=== PATIENT | female | born 1990 | race Caucasian/White ===

== ENCOUNTER 2020-05-02 08:45 | Emergency (ER) | payer OTHER, SELFPAY ==
[2020-05-02] VITALS (8 sets, daily range): BP systolic 99–128; BP diastolic 59–82; PULSE 66–83; RESP 15–17; TEMP 36.7; O2SAT 97–100; BMI 31.8
[2020-05-02] MEDS: ONDANSETRON 4 MG/2 ML INJ IV ×2 (09:14→12:46)
[2020-05-02 09:30] LABS: INR 1.1 (0.9-1.3); Prothrombin Time 12.4 SECONDS (10.1-12.7)
[2020-05-02 09:33] LABS: Add Manual Diff / Slide Review NO; Basophils Absolute Auto 100 /uL (0-100); Basophils Percent Auto 0.5 % (0-2); Eosinophils Absolute Auto 100 /uL (0-450); Eosinophils Percent Auto 0.5 % (2-4); Hematocrit 43.1 % (36-46); Hemoglobin 14.3 g/dL (12.0-16.0); Lymphocytes Absolute Auto 1900 /uL (1100-4500); Lymphocytes Percent Auto 14.8 % (25-40); Mean Corpuscular HGB Conc 33.2 % (30-36); Mean Corpuscular Hemoglobin 28.3 PG (26-34); Mean Corpuscular Volume 85.4 fL (80-100); Monocytes Absolute Auto 700 /uL (0-900); Monocytes Percent Auto 5.4 % (3-14); Neutrophils Absolute Auto 10100 /uL (1500-7000); Neutrophils Percent Auto 78.8 % (50-75); PTT Partial Thromboplastin Tim 28 SECONDS (26.4-36.2); Platelet Count 225 X10^3/uL (150-400); Red Blood Cell Count 5.04 X10^6/uL (4.0-5.2); Red Cell Distribution Width 13.6 % (11.6-14.8); White Blood Cell Count 12.8 X10^3/uL (4.5-11.0)
[2020-05-02 09:34] LABS: Alanine Aminotransferase 22 IU/L (<35); Albumin 4.7 g/dL (3.5-5.0); Albumin Globulin Ratio 1.3 (1.0-2.8); Alkaline Phosphatase 60 U/L (38-126); Aspartate Aminotransferase 22 IU/L (14-36); BUN Creatinine Ratio 20.5 (6-22); Bilirubin Total 0.5 mg/dL (0.2-1.3); Blood Urea Nitrogen 15 mg/dL (7-17); Calcium 9.4 mg/dL (8.4-10.2); Carbon Dioxide 23 mmol/L (22-32); Chloride 105 mmol/L (98-107); Estimated Glomerular Filt Rate > 60.0 mL/min (>60); Globulin 3.5 g/dL (1.7-4.1); Glucose 93 mg/dL (70-100); HEMOLYSIS < 15 (0-50); Lipase 54 U/L (23-300); Potassium 3.7 mmol/L (3.4-5.1); Sodium 136 mmol/L (137-145); Total Protein 8.2 g/dL (6.3-8.2)
[2020-05-02 10:32] LABS: Appearance Urine UA CLEAR; Bilirubin Urine UA NEGATIVE (NEGATIVE); Color Urine UA YELLOW; Glucose Urine UA NEGATIVE (Negative); Ketones Urine UA 3+ (NEGATIVE); Leukocyte Esterase Urine UA NEGATIVE (NEGATIVE); Nitrite Urine UA NEGATIVE (Negative); Occult Blood Urine UA TRACE-INTACT (Negative); Protein Urine UA TRACE (Negative)
[2020-05-02 10:40] LABS: RBC Urine 0-1/HPF (0-5/HPF); Squamous Epithelial Cell Urine 10-30 /HPF (0-5/HPF); WBC Urine 0-1/HPF (0-5/HPF); pH Urine UA 6.5 (4.5-8.0)
[2020-05-02 10:41] LABS: Bacteria Urine Few (2-10); Culture Indicated Urine Cult Not Indicated
[2020-05-02 12:28] LABS: HCG Quantitative /Beta subunit 43764 mIU/mL
[2020-05-02] MEDS: SODIUM CHLORIDE 0.9% 1,000 ML 1000 ML IV (12:45)
--- NOTE | 2020-05-02 12:48 | ED.NAVMDI ---
HPI - Nausea/Vomiting/Diarrhea <ELAINE Maravilla - Last Filed: 05/02/20 14:51> General Chief complaint: Nausea/Vomiting/Diarrhea Stated complaint: vomiting/ sick for a week Time Seen by Provider: 05/02/20 12:09 Source: patient Mode of arrival: Ambulatory Limitations: no limitations History of Present Illness HPI Narrative: The patient is a 29-year-old female current everyday smoker presents with a chief complaint of nausea vomiting and vaginal spotting for the past week. She thinks she is on her menstrual cycle. She denies any fevers, does complain of slight low back pain. She denies any dysuria but states that she is urinating her pains every time she vomits. She states she is urinating well without urinary frequency or urgency. She states that her last menstrual cycle ended on 04/04/2020 or so. She states that she is vomiting throughout the day, and rarely goes more than a few hours without vomiting. She denies any vaginal discharge or concern about sexually transmitted infections. She denies any focal abdominal pain but complains of generalized cramping. She states she has been once before had an elective at that point time. She presents with her boyfriend today. 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 She states that she spots for 2 days, and then stops bleeding and then spots again a few days later. Related Data Previous Rx's Medication Instructions Recorded ondansetron 4 mg PO Q6H PRN #20 tab 05/02/20 Allergies Allergy/AdvReac Type Severity Reaction Status Date / Time No Known Drug Allergies Allergy Verified 05/02/20 09:02 Review of Systems <ELAINE Maravilla - Last Filed: 05/02/20 14:51> Review of Systems Narrative: GENERAL: Denies chills, fatigue, malaise, fever, sweats. HEENT: Denies sinus pain, ear pain, sore throat, difficulty swallowing, dizziness. RESPIRATORY: Denies dyspnea, cough, wheezing, hemoptysis, sputum. CARDIOVASCULAR: Denies chest pain, palpitations, orthopnea, edema, GASTROINTESTINAL: See HPI : See HPI MUSCULOSKELETAL: denies weakness, joint pain, or bony pain SKIN: Denies rash, skin lesions, or other NEUROLOGIC: Denies weakness, headache, numbness, change in speech, confusion, seizures, incoordination. PSYCHIATRIC: No concerning psychosocial issues. 12 point review of systems is negative except for those stated above Patient History <Gladys FontanezELAINE - Last Filed: 05/02/20 14:51> Surgical History (Updated 10/27/17 @ 05:50 by Conversion Provider) Status post knee surgery Social History Smoking Status: Current every day smoker Smoking Status: Current every day smoker tobacco type: vaping alcohol intake frequency: holidays/special occasions only Substance Use Type: marijuana Exam <Gladys FontanezELAINE - Last Filed: 05/02/20 14:51> Narrative Exam Narrative: GENERAL: This is a well-nourished, well-developed patient, in no acute distress HEAD: Atraumatic. Normocephalic. No temporal or scalp tenderness. EYES: Pupils equal round and reactive. Extraocular motions intact. No scleral icterus. No injection or drainage. ENT: Nose without bleeding, purulent drainage or septal hematoma. Throat without erythema, tonsillar hypertrophy or exudate. Uvula midline. Airway patent. Slightly dry mucous membranes NECK: Trachea midline. No JVD or lymphadenopathy. Supple, nontender, no meningeal signs. CARDIOVASCULAR: Regular rate and rhythm RESPIRATORY: Clear to auscultation. Breath sounds equal bilaterally. No wheezes, rales, or rhonchi. No cough. No increased respiratory effort. No accessory muscle use. GASTROINTESTINAL: Abdomen soft, slight suprapubic tenderness to palpation, active bowel sounds all 4 quadrants, nondistended. No hepato-splenomegaly, or palpable masses. No guarding. EXTREMITIES: No clubbing, cyanosis, or edema. No joint tenderness, effusion, or edema noted. BACK: Nontender without deformity or crepitance. No flank tenderness. NEURO: AOx3. SKIN: No rash or erythema on visible skin Initial Vital Signs Initial Vital Signs: Vital Signs Temperature 98.0 F 05/02/20 09:02 Pulse Rate 70 05/02/20 09:02 Respiratory Rate 15 05/02/20 09:02 Blood Pressure 128/75 05/02/20 09:02 Pulse Oximetry 97 05/02/20 09:02 <Yury Harding MD - Last Filed: 05/03/20 08:13> Initial Vital Signs Initial Vital Signs: Vital Signs Temperature 98.0 F 05/02/20 09:02 Pulse Rate 70 05/02/20 09:02 Respiratory Rate 15 05/02/20 09:02 Blood Pressure 128/75 05/02/20 09:02 Pulse Oximetry 97 05/02/20 09:02 Scores <SYLVIA MaravillaBC - Last Filed: 05/02/20 14:51> GCS Davis coma scale eye opening: Spontaneous [place] coma scale verbal response: Orientated [place] coma scale motor response: Obey commands Davis coma scale total score: 15 Course <SYLVIA MaravillaBC - Last Filed: 05/02/20 14:51> Orders Ordered: Discontinued Medications Sodium Chloride (Normal Saline 0.9%) 1,000 mls @ 1,000 mls/hr IV BOLUS ONE Stop: 05/02/20 13:28 Last Infusion: 05/02/20 14:08 Dose: 0 mls/hr Documented by: Admin: 05/02/20 12:45 Dose: 1,000 mls/hr Documented by: CHINTAN Ondansetron HCl (Zofran) 4 mg IV NOW ONE Stop: 05/02/20 09:06 Last Admin: 05/02/20 09:14 Dose: 4 mg Documented by: GIUSEPPE Ondansetron HCl (Zofran) 4 mg IV NOW ONE Stop: 05/02/20 12:30 Last Admin: 05/02/20 12:46 Dose: 4 mg Documented by: CHINTAN Vital Signs Vital signs: Vital Signs - 8 hr 05/02/20 09:02 05/02/20 11:30 05/02/20 12:00 Temperature 98.0 F Pulse Rate 70 71 66 Respiratory Rate 15 16 17 Blood Pressure 128/75 128/69 121/82 Pulse Oximetry 97 99 98 05/02/20 13:00 05/02/20 13:04 05/02/20 13:30 Temperature Pulse Rate 81 80 75 Respiratory Rate 17 Blood Pressure 115/75 103/59 L Pulse Oximetry 100 98 99 05/02/20 14:00 05/02/20 14:30 Temperature Pulse Rate 83 81 Respiratory Rate Blood Pressure 100/59 L 99/65 Pulse Oximetry 97 98 <Yury Harding MD - Last Filed: 05/03/20 08:13> Orders Ordered: Discontinued Medications Sodium Chloride (Normal Saline 0.9%) 1,000 mls @ 1,000 mls/hr IV BOLUS ONE Stop: 05/02/20 13:28 Last Infusion: 05/02/20 14:08 Dose: 0 mls/hr Documented by: Admin: 05/02/20 12:45 Dose: 1,000 mls/hr Documented by: CHINTAN Ondansetron HCl (Zofran) 4 mg IV NOW ONE Stop: 05/02/20 09:06 Last Admin: 05/02/20 09:14 Dose: 4 mg Documented by: GIUSEPPE Ondansetron HCl (Zofran) 4 mg IV NOW ONE Stop: 05/02/20 12:30 Last Admin: 05/02/20 12:46 Dose: 4 mg Documented by: CHINTAN Vital Signs Vital signs: Vital Signs - 8 hr 05/02/20 09:02 05/02/20 11:30 05/02/20 12:00 Temperature 98.0 F Pulse Rate 70 71 66 Respiratory Rate 15 16 17 Blood Pressure 128/75 128/69 121/82 Pulse Oximetry 97 99 98 05/02/20 13:00 05/02/20 13:04 05/02/20 13:30 Temperature Pulse Rate 81 80 75 Respiratory Rate 17 Blood Pressure 115/75 103/59 L Pulse Oximetry 100 98 99 05/02/20 14:00 05/02/20 14:30 Temperature Pulse Rate 83 81 Respiratory Rate Blood Pressure 100/59 L 99/65 Pulse Oximetry 97 98 MDM - Nausea/Vomiting/Diarrhea <TORI Maravilla- - Last Filed: 05/02/20 14:51> Lab Data Attestation: I reviewed the patient's lab results. Result diagrams: 05/02/20 09:00 05/02/20 09:00 Labs: Lab Results 05/02/20 05/02/20 05/02/20 Range/Units 09:00 09:00 09:00 WBC 12.8 H (4.5-11.0) X10^3/uL RBC 5.04 (4.0-5.2) X10^6/uL Hgb 14.3 (12.0-16.0) g/dL Hct 43.1 (36-46) % MCV 85.4 (80-100) fL MCH 28.3 (26-34) PG MCHC 33.2 (30-36) % RDW 13.6 (11.6-14.8) % Plt Count 225 (150-400) X10^3/uL Neut % (Auto) 78.8 H (50-75) % Lymph % (Auto) 14.8 L (25-40) % [place] % (Auto) 5.4 (3-14) % Eos % (Auto) 0.5 L (2-4) % Baso % (Auto) 0.5 (0-2) % Neut # (Auto) 31015 H (3181-2626) /uL Lymph # (Auto) 1900 (6254-8746) /uL [place] # (Auto) 700 (0-900) /uL Eos # (Auto) 100 (0-450) /uL Baso # (Auto) 100 (0-100) /uL PT 12.4 (10.1-12.7) SECONDS INR 1.1 (0.9-1.3) APTT 28 (26.4-36.2) SECONDS Sodium 136 L (137-145) mmol/L Potassium 3.7 (3.4-5.1) mmol/L Chloride 105 (98-107) mmol/L Carbon Dioxide 23 (22-32) mmol/L BUN 15 (7-17) mg/dL Creatinine 0.73 (0.52-1.04) mg/dL Estimated GFR > 60.0 (>60) mL/min BUN/Creatinine Ratio 20.5 (6-22) Glucose 93 (70-100) mg/dL Calcium 9.4 (8.4-10.2) mg/dL Total Bilirubin 0.5 (0.2-1.3) mg/dL AST 22 (14-36) IU/L ALT 22 (<35) IU/L Alkaline Phosphatase 60 (38-126) U/L Total Protein 8.2 (6.3-8.2) g/dL Albumin 4.7 (3.5-5.0) g/dL Globulin 3.5 (1.7-4.1) g/dL Albumin/Globulin Ratio 1.3 (1.0-2.8) Lipase 54 (23-300) U/L HCG, Quant mIU/mL Urine Color Urine Appearance Urine pH (4.5-8.0) Ur Specific [place] (1.000-1.035) Urine Protein (Negative) Urine Glucose (UA) (Negative) g/dL Urine Ketones (NEGATIVE) Urine Occult Blood (Negative) Urine Nitrate (Negative) Urine Bilirubin (NEGATIVE) Urine Urobilinogen (0.2) E.U./dL Ur Leukocyte Esterase (NEGATIVE) Urine RBC (0-5/HPF) Urine WBC (0-5/HPF) Ur Squamous Epith Cells (0-5/HPF) Ur Transition Epith Cell Ur Renal Epithelial Cell Calcium Oxalate Crystal Uric Acid Crystals Triple Phos Crystals Other Crystals Amorphous Sediment Urine Bacteria (None) Hyaline Casts Granular Casts RBC Casts WBC Casts Other Casts Urine Mucus Urine Trichomonas Urine Yeast Urine Sperm Ur Culture Indicated? Micro UA Comment 05/02/20 05/02/20 05/02/20 Range/Units 09:00 09:18 09:18 WBC (4.5-11.0) X10^3/uL RBC (4.0-5.2) X10^6/uL Hgb (12.0-16.0) g/dL Hct (36-46) % MCV (80-100) fL MCH (26-34) PG MCHC (30-36) % RDW (11.6-14.8) % Plt Count (150-400) X10^3/uL Neut % (Auto) (50-75) % Lymph % (Auto) (25-40) % [place] % (Auto) (3-14) % Eos % (Auto) (2-4) % Baso % (Auto) (0-2) % Neut # (Auto) (7609-1572) /uL Lymph # (Auto) (6060-7108) /uL [place] # (Auto) (0-900) /uL Eos # (Auto) (0-450) /uL Baso # (Auto) (0-100) /uL PT (10.1-12.7) SECONDS INR (0.9-1.3) APTT (26.4-36.2) SECONDS Sodium (137-145) mmol/L Potassium (3.4-5.1) mmol/L Chloride (98-107) mmol/L Carbon Dioxide (22-32) mmol/L BUN (7-17) mg/dL Creatinine (0.52-1.04) mg/dL Estimated GFR (>60) mL/min BUN/Creatinine Ratio (6-22) Glucose (70-100) mg/dL Calcium (8.4-10.2) mg/dL Total Bilirubin (0.2-1.3) mg/dL AST (14-36) IU/L ALT (<35) IU/L Alkaline Phosphatase (38-126) U/L Total Protein (6.3-8.2) g/dL Albumin (3.5-5.0) g/dL Globulin (1.7-4.1) g/dL Albumin/Globulin Ratio (1.0-2.8) Lipase (23-300) U/L HCG, Quant 34628 mIU/mL Urine Color Yellow Urine Appearance Clear Urine pH 6.5 (4.5-8.0) Ur Specific [place] 1.010 (1.000-1.035) Urine Protein Trace H (Negative) Urine Glucose (UA) Negative (Negative) g/dL Urine Ketones 3+ H (NEGATIVE) Urine Occult Blood Trace-intact (Negative) Urine Nitrate Negative (Negative) Urine Bilirubin Negative (NEGATIVE) Urine Urobilinogen 1.0 (0.2) E.U./dL Ur Leukocyte Esterase Negative (NEGATIVE) Urine RBC 0-1/hpf Cancelled (0-5/HPF) Urine WBC 0-1/hpf Cancelled (0-5/HPF) Ur Squamous Epith Cells 10-30 /hpf H Cancelled (0-5/HPF) Ur Transition Epith Cell Cancelled Ur Renal Epithelial Cell Cancelled Calcium Oxalate Crystal Cancelled Uric Acid Crystals Cancelled Triple Phos Crystals Cancelled Other Crystals Cancelled Amorphous Sediment Cancelled Urine Bacteria Few (2-10) H Cancelled (None) Hyaline Casts Cancelled Granular Casts Cancelled RBC Casts Cancelled WBC Casts Cancelled Other Casts Cancelled Urine Mucus Cancelled Urine Trichomonas Cancelled Urine Yeast Cancelled Urine Sperm Cancelled Ur Culture Indicated? Cult not indicated Cancelled Micro UA Comment Cancelled Point of Care Testing Test Results Positive Imaging Data US - OB: Radiologist's Impression: [address] [place] [id number] Ultrasound Report Signed Patient: Caridad Orozco [facility]#: [id number] : 1990Acct:[id number] Age/Sex: 29 / FDate of Service: 05/02/20 Loc: ED Accession Number: [id number] Procedure: US OB <= 14 weeks fetus Ordering Provider: Gladys Fontanez PROCEDURE: US OB <= 14 WEEKS FETUS INDICATIONS: BLEEDING, CRAMPING OUTSIDE/PRIOR DATING DATA: Last menstrual period (LMP): 04/06/2020. LMP-based estimated date of delivery (GRACE): 01/11/2021 First dating scan (date and location): 05/02/2020 at [facility] Estimated date of delivery (GRACE) from first dating scan: 12/18/2020 TECHNIQUE: Real-time scanning was performed of the fetus and maternal pelvic organs, with image documentation. Endovaginal scanning was also performed to better visualize the fetus and maternal ovaries. COMPARISON: None. FINDINGS: Embryo: An intrauterine is seen with embryo and yolk sac. The crown-rump length is 11 mm, compatible with a gestational age of 7 weeks 1 day. heart rate is 141 beats per minute. A complex fluid collection is seen adjacent to the gestational sac measuring 1.1 x 1.1 x 1.0 cm, most likely representing a perigestational hemorrhage. Measurement variability in dating: +/- 4 weeks by LMP, +/- 7 days by mean sac diameter (use before 6 weeks gestation if crown-rump length not able to be measured), +/- 5 days by crown-rump length (up to 8 weeks 6 days gestation), +/- 7 days by crown-rump length (up to 13 weeks 6 days gestation). Maternal organs: Ovaries are not well visualized. Limited images through the kidneys demonstrate no hydronephrosis. IMPRESSION: 1. Single live intrauterine with measurements compatible with a 7 weeks 1 day gestation, resulting in an ultrasound GRACE of 12/18/2020. heart rate is 141 BPM. 2. Small perigestational sac hemorrhage measures 1.1 x 1.1 x 1.0 cm. 3. Maternal ovaries are not well visualized. Dictated by: Que Swanson M.D. on 05/02/2020 at 13:28 Approved by: Que Swanson M.D. on 05/02/2020 at 13:33 MDM Narrative Medical decision making narrative: The patient is a 29-year-old female who presents with a chief complaint of nausea and vomiting for the past week. Her initial lab work is grossly normal, slight leukocytosis of 12. Her urinalysis shows slight hematuria slight bacteria, no nitrates or leukocyte esterase. She is noted to have a positive urine test. Subsequently beta [place] [address]. Thus an ultrasound was obtained to rule out for any tubal given her abdominal pain and cramping. Ultrasound was obtained and she was found to be approximately 7 weeks and 1 day , with a small the carrie gestational sac hemorrhage. The patient felt much improved after Zofran and IV fluids, is able to keep down p.o. food and fluids and requesting to leave. I did discuss at length with her the importance of follow-up, she actually has an appointment with her primary care provider tomorrow. She would rather go through go through her primary care provider to help arrange OBGYN follow-up. She is nontoxic, well appearing the emergency department, afebrile and hemodynamically stable. I discussed at length starting vitamins, avoiding smoking alcohol etcetera. She does have an appointment with PCP tomorrow. Discussed come back to ER for acute concerns. Discussed the finding of a small gestational sac hemorrhage and encouraged follow-up care. Patient has no questions or concerns upon discharge and states understanding of return precautions as well as follow-up care. <Yury Harding MD - Last Filed: 05/03/20 08:13> Lab Data Labs: Lab Results 05/02/20 05/02/20 05/02/20 Range/Units 09:00 09:00 09:00 WBC 12.8 H (4.5-11.0) X10^3/uL RBC 5.04 (4.0-5.2) X10^6/uL Hgb 14.3 (12.0-16.0) g/dL Hct 43.1 (36-46) % MCV 85.4 (80-100) fL MCH 28.3 (26-34) PG MCHC 33.2 (30-36) % RDW 13.6 (11.6-14.8) % Plt Count 225 (150-400) X10^3/uL Neut % (Auto) 78.8 H (50-75) % Lymph % (Auto) 14.8 L (25-40) % [place] % (Auto) 5.4 (3-14) % Eos % (Auto) 0.5 L (2-4) % Baso % (Auto) 0.5 (0-2) % Neut # (Auto) 94776 H (1087-1126) /uL Lymph # (Auto) 1900 (2273-5021) /uL [place] # (Auto) 700 (0-900) /uL Eos # (Auto) 100 (0-450) /uL Baso # (Auto) 100 (0-100) /uL PT 12.4 (10.1-12.7) SECONDS INR 1.1 (0.9-1.3) APTT 28 (26.4-36.2) SECONDS Sodium 136 L (137-145) mmol/L Potassium 3.7 (3.4-5.1) mmol/L Chloride 105 (98-107) mmol/L Carbon Dioxide 23 (22-32) mmol/L BUN 15 (7-17) mg/dL Creatinine 0.73 (0.52-1.04) mg/dL Estimated GFR > 60.0 (>60) mL/min BUN/Creatinine Ratio 20.5 (6-22) Glucose 93 (70-100) mg/dL Calcium 9.4 (8.4-10.2) mg/dL Total Bilirubin 0.5 (0.2-1.3) mg/dL AST 22 (14-36) IU/L ALT 22 (<35) IU/L Alkaline Phosphatase 60 (38-126) U/L Total Protein 8.2 (6.3-8.2) g/dL Albumin 4.7 (3.5-5.0) g/dL Globulin 3.5 (1.7-4.1) g/dL Albumin/Globulin Ratio 1.3 (1.0-2.8) Lipase 54 (23-300) U/L HCG, Quant mIU/mL Urine Color Urine Appearance Urine pH (4.5-8.0) Ur Specific [place] (1.000-1.035) Urine Protein (Negative) Urine Glucose (UA) (Negative) g/dL Urine Ketones (NEGATIVE) Urine Occult Blood (Negative) Urine Nitrate (Negative) Urine Bilirubin (NEGATIVE) Urine Urobilinogen (0.2) E.U./dL Ur Leukocyte Esterase (NEGATIVE) Urine RBC (0-5/HPF) Urine WBC (0-5/HPF) Ur Squamous Epith Cells (0-5/HPF) Ur Transition Epith Cell Ur Renal Epithelial Cell Calcium Oxalate Crystal Uric Acid Crystals Triple Phos Crystals Other Crystals Amorphous Sediment Urine Bacteria (None) Hyaline Casts Granular Casts RBC Casts WBC Casts Other Casts Urine Mucus Urine Trichomonas Urine Yeast Urine Sperm Ur Culture Indicated? Micro UA Comment 05/02/20 05/02/20 05/02/20 Range/Units 09:00 09:18 09:18 WBC (4.5-11.0) X10^3/uL RBC (4.0-5.2) X10^6/uL Hgb (12.0-16.0) g/dL Hct (36-46) % MCV (80-100) fL MCH (26-34) PG MCHC (30-36) % RDW (11.6-14.8) % Plt Count (150-400) X10^3/uL Neut % (Auto) (50-75) % Lymph % (Auto) (25-40) % [place] % (Auto) (3-14) % Eos % (Auto) (2-4) % Baso % (Auto) (0-2) % Neut # (Auto) (7556-3192) /uL Lymph # (Auto) (7300-2904) /uL [place] # (Auto) (0-900) /uL Eos # (Auto) (0-450) /uL Baso # (Auto) (0-100) /uL PT (10.1-12.7) SECONDS INR (0.9-1.3) APTT (26.4-36.2) SECONDS Sodium (137-145) mmol/L Potassium (3.4-5.1) mmol/L Chloride (98-107) mmol/L Carbon Dioxide (22-32) mmol/L BUN (7-17) mg/dL Creatinine (0.52-1.04) mg/dL Estimated GFR (>60) mL/min BUN/Creatinine Ratio (6-22) Glucose (70-100) mg/dL Calcium (8.4-10.2) mg/dL Total Bilirubin (0.2-1.3) mg/dL AST (14-36) IU/L ALT (<35) IU/L Alkaline Phosphatase (38-126) U/L Total Protein (6.3-8.2) g/dL Albumin (3.5-5.0) g/dL Globulin (1.7-4.1) g/dL Albumin/Globulin Ratio (1.0-2.8) Lipase (23-300) U/L HCG, Quant 61679 mIU/mL Urine Color Yellow Urine Appearance Clear Urine pH 6.5 (4.5-8.0) Ur Specific [place] 1.010 (1.000-1.035) Urine Protein Trace H (Negative) Urine Glucose (UA) Negative (Negative) g/dL Urine Ketones 3+ H (NEGATIVE) Urine Occult Blood Trace-intact (Negative) Urine Nitrate Negative (Negative) Urine Bilirubin Negative (NEGATIVE) Urine Urobilinogen 1.0 (0.2) E.U./dL Ur Leukocyte Esterase Negative (NEGATIVE) Urine RBC 0-1/hpf Cancelled (0-5/HPF) Urine WBC 0-1/hpf Cancelled (0-5/HPF) Ur Squamous Epith Cells 10-30 /hpf H Cancelled (0-5/HPF) Ur Transition Epith Cell Cancelled Ur Renal Epithelial Cell Cancelled Calcium Oxalate Crystal Cancelled Uric Acid Crystals Cancelled Triple Phos Crystals Cancelled Other Crystals Cancelled Amorphous Sediment Cancelled Urine Bacteria Few (2-10) H Cancelled (None) Hyaline Casts Cancelled Granular Casts Cancelled RBC Casts Cancelled WBC Casts Cancelled Other Casts Cancelled Urine Mucus Cancelled Urine Trichomonas Cancelled Urine Yeast Cancelled Urine Sperm Cancelled Ur Culture Indicated? Cult not indicated Cancelled Micro UA Comment Cancelled Point of Care Testing Test Results Positive Discharge Plan Departure Patient Disposition: Home Clinical Impression: Nausea and vomiting during , Vaginal bleeding in Qualifiers: Weeks of gestation: less than 8 weeks Qualified Code(s): Z3A.01 - Less than 8 weeks gestation of Discharge Date/Time: 05/02/20 14:46 Instructions: Nausea of (Alternative Therapy), Support (Alternative Therapy), DI for -- Discomforts and Remedies, DI for Vaginal Bleeding During Activity Restrictions/Additional Instructions: Thank you for trusting us with your care today. As discussed, you are 7 weeks and 1 day approximately. At this point there is a small perigestational sac hemorrhage which could be leading to the bleeding. This can be between the uterine wall and the membrane and the . It is very common, but certainly does need to be monitored. It is important that you follow-up with primary care provider as scheduled tomorrow. As discussed, please avoid smoking. Please start taking vitamins etcetera. I have sent a prescription of ondansetron or Zofran for nausea to [facility] in [place] Please come back to the emergency department for any acute concerns. Prescriptions: New ondansetron 4 mg tablet,disintegrating 4 mg PO Q6H PRN (Reason: nausea and vomiting) Qty: 20 RF: 0 Referrals: Gia Irvin PA-C [Primary Care Provider] - Stand Alone Forms: Work Release Note <Yury Harding MD - Last Filed: 05/03/20 08:13> [facility]: I was immediately available in the department for consultation. This documentation has been reviewed and I agree with assessment and plan. Supervised by Yury Harding MD
== END 2020-05-02 14:46 | disposition home or self-care (01) ==
PROVIDERS: Emergency Medicine; Emergency Provider Nurse Practitioner Family; Family Provider Physician Assistant; PCP Physician Assistant
DX: O21.9 Vomiting of pregnancy, unspecified (principal); R30.0 Dysuria; Z3A.01 Less than 8 weeks gestation of pregnancy
CPT/HCPCS: 36415; 76801; 76817; 80053; 81001; 81025; 83690; 84702; 85025; 85610; 85730; 93005; 96361; 96374; 96376; 99284; J2405

== ENCOUNTER → 2020-07-09 14:53 | Outpatient (CLI) | payer OTHER, MEDICAID, SELFPAY ==
[2020-07-09 16:01] LABS: Add Manual Diff / Slide Review NO; Basophils Absolute Auto 100 /uL (0-100); Basophils Percent Auto 0.4 % (0-2); Eosinophils Absolute Auto 100 /uL (0-450); Eosinophils Percent Auto 0.6 % (2-4); Hematocrit 39.7 % (36-46); Lymphocytes Absolute Auto 3400 /uL (1100-4500); Lymphocytes Percent Auto 21.3 % (25-40); Mean Corpuscular HGB Conc 32.7 % (30-36); Mean Corpuscular Hemoglobin 28.1 PG (26-34); Mean Corpuscular Volume 85.8 fL (80-100); Monocytes Absolute Auto 800 /uL (0-900); Monocytes Percent Auto 4.9 % (3-14); Neutrophils Absolute Auto 11500 /uL (1500-7000); Neutrophils Percent Auto 72.8 % (50-75); Platelet Count 219 X10^3/uL (150-400); Red Blood Cell Count 4.62 X10^6/uL (4.0-5.2); Red Cell Distribution Width 13.8 % (11.6-14.8); White Blood Cell Count 15.8 X10^3/uL (4.5-11.0)
[2020-07-09 16:14] LABS: Alanine Aminotransferase 18 IU/L (<35); Albumin 4.5 g/dL (3.5-5.0); Albumin Globulin Ratio 1.4 (1.0-2.8); Alkaline Phosphatase 64 U/L (38-126); Aspartate Aminotransferase 20 IU/L (14-36); BUN Creatinine Ratio 23.2 (6-22); Blood Urea Nitrogen 13 mg/dL (7-17); Calcium 9.6 mg/dL (8.4-10.2); Carbon Dioxide 25 mmol/L (22-32); Chloride 102 mmol/L (98-107); Estimated Glomerular Filt Rate > 60.0 mL/min (>60); Globulin 3.3 g/dL (1.7-4.1); Glucose 87 mg/dL (70-100); HEMOLYSIS < 15 (0-50); Lactate Dehydrogenase 378 U/L (313-618); Potassium 3.8 mmol/L (3.4-5.1); Sodium 134 mmol/L (137-145); Total Protein 7.8 g/dL (6.3-8.2); Uric Acid 2.6 mg/dL (2.5-6.2)
[2020-07-09 16:32] LABS: Appearance Urine UA CLEAR; Bilirubin Urine UA NEGATIVE (NEGATIVE); Color Urine UA YELLOW; Glucose Urine UA NEGATIVE (Negative); Ketones Urine UA 2+ (NEGATIVE); Leukocyte Esterase Urine UA NEGATIVE (NEGATIVE); Nitrite Urine UA NEGATIVE (Negative); Occult Blood Urine UA TRACE-LYSED (Negative); Protein Urine UA NEGATIVE (Negative); Specific Gravity Urine UA 1.025 (1.000-1.035); Urobilinogen Urine UA 0.2 E.U./dL (0.2)
[2020-07-09 16:40] LABS: Bilirubin Total < 0.1 mg/dL (0.2-1.3)
[2020-07-09 16:58] LABS: pH Urine UA 6.5 (4.5-8.0)
[2020-07-10 08:17] LABS: RPR Screen Non Reactive (Non Reactive)
[2020-07-10 10:47] LABS: Varicella IgG Antibody 1974 index (Immune >165)
[2020-07-10 17:17] LABS: Creatinine Urine Random 116.8 mg/dL; Protein (Total) Urine Random 7 mg/dL (0-12); Protein Creatinine Ratio Urine 0.05 GRAM/24H
[2020-07-10 18:11] LABS: Hepatitis B Surface Antigen NEGATIVE s/c (NEGATIVE)
[2020-07-10 18:20] LABS: HIV 1 & 2 Ab/Ag 4th Gen Combo NEGATIVE (NEGATIVE); Hep C Virus Ab w/Reflex Quant NEGATIVE s/c (NEGATIVE)
== END ==
PROVIDERS: Family Provider Physician Assistant; PCP Registered Nurse; Referring Provider Obstetrics & Gynecology; Visit Provider Obstetrics & Gynecology
DX: Z34.82 Encounter for supervision of other normal pregnancy, second trimester (principal)
CPT/HCPCS: 36415; 80053; 80055; 81003; 82570; 83615; 84156; 84550; 86787; 86803; 86850; 86900; 86901; 87086; 87147; 87389

== ENCOUNTER → 2020-09-21 14:58 | Outpatient (CLI) | payer OTHER, MEDICAID, SELFPAY ==
--- NOTE | 2020-09-21 14:59 | DI.US.S_ITS ---
PROCEDURE: US OB >= 14 WEEKS FETUS INDICATIONS: SIZE UPDATE OUTSIDE/PRIOR DATING DATA: Last menstrual period (LMP): April 06, 2020. LMP-based estimated date of delivery (GRACE): January 11, 2021. First dating scan (date and location): May 02, 2020. Estimated date of delivery (GRACE) from first dating scan: December 18, 2020. TECHNIQUE: Real-time scanning was performed of the fetus, with image documentation and biometric measurements. Endovaginal scanning: Performed COMPARISON: [facility], , OB <= 14 WEEKS FETUS, 06/11/2020, 15:12. [facility], , OB <= 14 WEEKS FETUS, 05/02/2020, 13:00. FINDINGS: General: A single living intrauterine gestation is present. Presentation: Vertex Placenta: Placental position is anterior, without previa. Amniotic fluid index: 19.0 cm, normal range is 5-24 cm. heart rate: 127 beats per minute. Maternal cervical canal: Closed and 3.0 cm long. Normal lower limit is 2.5 cm. biometrics: Biparietal diameter: 27 weeks 6 days Head circumference: 27 weeks 2 days Abdominal circumference: 26 weeks 1 day Femur length: 27 weeks 2 days Estimated gestational age from initial scan: 27 weeks 3 days. Composite gestational age from present scan: 27 weeks 1 day Estimated weight and percentile: 966 grams; 14th percentile Measurement variability for biometric dating: +/- 7 days from 14 weeks to 15 weeks 6 days gestation, +/- 10 days from 16 weeks to 21 weeks 6 days gestation, +/- 2 weeks from 22 weeks to 27 weeks 6 days gestation, +/- 3 weeks for 28 weeks gestation or later. weight reference: 4500 g or EFW >90/95% is considered macrosomia or large for gestational age. EFW <10% is small for gestational age. EFW 5% or less is considered intra-uterine growth restriction. Anatomic survey: Neuro: Ventricles are non-dilated at less than 10 mm. Cisterna magna is normal at 3-11 mm. Cerebellum is normal in size and morphology. Nuchal skin fold: Normal at less than 6 mm between 14-21 weeks gestational age. Face: Nose and lips, facial profile are normal. Spine: Sacral lumbar spine not well visualized due to position. Heart: 4-chambered heart is present, with normal ventricular outflow tracts. Diaphragm: Diaphragm is intact. Stomach: Left-sided stomach is present. Kidneys: No hydronephrosis. Normal is less than 5 mm in 2nd trimester, less than 7 mm in 3rd trimester. Cord: 3-vessel cord has orthotopic insertion. Bladder: Normal in size. Extremities: All 4 extremities identified. IMPRESSION: 1. Single living intrauterine . 2. Normal amniotic fluid index. 3. Estimated weight 966 grams corresponding to the 14th percentile for gestational age. Abdominal circumference 10th percentile for gestational age. 4. lumbar spine and sacrum not visualized due to position. anatomic survey otherwise normal. Dictated by: Trena Keith MD, PhD on 09/21/2020 at 16:59 Approved by: Trena Keith MD, PhD on 09/21/2020 at 17:03
== END ==
PROVIDERS: Family Provider Physician Assistant; PCP Registered Nurse; Referring Provider Obstetrics & Gynecology; Visit Provider Obstetrics & Gynecology
DX: Z36.89 Encounter for other specified antenatal screening (principal); Z3A.27 27 weeks gestation of pregnancy
CPT/HCPCS: 76811

== ENCOUNTER → 2020-10-03 12:07 | Outpatient (CLI) | payer OTHER, MEDICAID, SELFPAY ==
--- NOTE | 2020-10-03 12:08 | DI.US.S_ITS ---
PROCEDURE: US OB LIMITED INDICATIONS: GROWTH; RE-EVALUATE LUMBOSACRAL SPINE OUTSIDE/PRIOR DATING DATA: Last menstrual period (LMP): 04/06/2020. LMP-based estimated date of delivery (GRACE): 01/11/2021 . First dating scan (date and location): 05/02/2020 . Estimated date of delivery (GRACE) from first dating scan: 12/18/2020 . TECHNIQUE: Real-time scanning was performed of the fetus, with image documentation and biometric measurements. Endovaginal scanning: No COMPARISON: [facility], OB >= 14 WEEKS FETUS, 09/21/2020, 15:52. FINDINGS: General: A single living intrauterine gestation is present. Presentation: Vertex. Placenta: Placental position is anterior , without previa. Amniotic fluid index: 19.0 cm, normal range is 5-24 cm. heart rate: 135 beats per minute. Maternal cervical canal: 3.3 cm long. Normal lower limit is 2.5 cm. biometrics: Biparietal diameter: 29 weeks 2 days Head circumference: 28 weeks 6 days Abdominal circumference: 28 weeks 5 days Femur length: 29 weeks 4 days Estimated gestational age from initial scan: 29 weeks 1 day Composite gestational age from present scan: 29 weeks 1 day Estimated weight and percentile: 1325 g; 33rd percentile Measurement variability for biometric dating: +/- 7 days from 14 weeks to 15 weeks 6 days gestation, +/- 10 days from 16 weeks to 21 weeks 6 days gestation, +/- 2 weeks from 22 weeks to 27 weeks 6 days gestation, +/- 3 weeks for 28 weeks gestation or later. weight reference: 4500 g or EFW >90/95% is considered macrosomia or large for gestational age. EFW <10% is small for gestational age. EFW 5% or less is considered intra-uterine growth restriction. Other: Normal LS spine.Normal LS spine. IMPRESSION: 1. Normal interval growth. 2. Normal appearance of the lumbosacral spine. Dictated by: Titus Hong Daniela Interpreted: Dony Renee MD on 10/03/2020 at 13:01 Approved by: Dony Renee M.D. on 10/03/2020 at 14:42
== END ==
PROVIDERS: Family Provider Physician Assistant; PCP Registered Nurse; Referring Provider Obstetrics & Gynecology; Visit Provider Obstetrics & Gynecology
DX: Z34.93 Encounter for supervision of normal pregnancy, unspecified, third trimester (principal); Z3A.29 29 weeks gestation of pregnancy
CPT/HCPCS: 76815

== ENCOUNTER → 2020-10-22 12:17 | Outpatient (CLI) | payer OTHER, MEDICAID, SELFPAY ==
[2020-10-22 14:33] LABS: HEMOLYSIS < 15 (0-50)
[2020-10-22 14:34] LABS: Alanine Aminotransferase 19 IU/L (<35); Albumin 3.7 g/dL (3.5-5.0); Albumin Globulin Ratio 1.2 (1.0-2.8); Alkaline Phosphatase 100 U/L (38-126); Aspartate Aminotransferase 21 IU/L (14-36); BUN Creatinine Ratio 12.9 (6-22); Bilirubin Total 0.2 mg/dL (0.2-1.3); Blood Urea Nitrogen 8 mg/dL (7-17); Calcium 9.4 mg/dL (8.4-10.2); Carbon Dioxide 22 mmol/L (22-32); Chloride 105 mmol/L (98-107); Estimated Glomerular Filt Rate > 60.0 mL/min (>60); GTT (PREG) 1 Hour PP 50gm Dose 125 mg/dL (76-139); Globulin 3.1 g/dL (1.7-4.1); Glucose 125 mg/dL (70-100); Lactate Dehydrogenase 339 U/L (313-618); Sodium 134 mmol/L (137-145); Total Protein 6.8 g/dL (6.3-8.2); Uric Acid 3.1 mg/dL (2.5-6.2)
[2020-10-22 14:39] LABS: Potassium 3.5 mmol/L (3.4-5.1)
[2020-10-22 14:40] LABS: Add Manual Diff / Slide Review NO; Basophils Absolute Auto 0 /uL (0-100); Basophils Percent Auto 0.2 % (0-2); Eosinophils Absolute Auto 100 /uL (0-450); Eosinophils Percent Auto 0.5 % (2-4); Hematocrit 36.5 % (36-46); Lymphocytes Absolute Auto 1700 /uL (1100-4500); Lymphocytes Percent Auto 13.4 % (25-40); Mean Corpuscular HGB Conc 32.8 % (30-36); Mean Corpuscular Hemoglobin 28.3 PG (26-34); Mean Corpuscular Volume 86.2 fL (80-100); Monocytes Absolute Auto 600 /uL (0-900); Monocytes Percent Auto 4.3 % (3-14); Neutrophils Absolute Auto 10500 /uL (1500-7000); Neutrophils Percent Auto 81.6 % (50-75); Platelet Count 220 X10^3/uL (150-400); Red Blood Cell Count 4.24 X10^6/uL (4.0-5.2); Red Cell Distribution Width 13.6 % (11.6-14.8); White Blood Cell Count 12.9 X10^3/uL (4.5-11.0)
[2020-10-22 16:43] LABS: Creatinine Urine Random 261.8 mg/dL; Protein (Total) Urine Random 10 mg/dL (0-12); Protein Creatinine Ratio Urine 0.03 GRAM/24H
== END ==
PROVIDERS: Family Provider Physician Assistant; PCP Registered Nurse; Referring Provider Obstetrics & Gynecology; Visit Provider Obstetrics & Gynecology
DX: Z34.82 Encounter for supervision of other normal pregnancy, second trimester (principal); Z3A.26 26 weeks gestation of pregnancy
CPT/HCPCS: 36415; 80053; 82570; 82950; 83615; 84156; 84550; 85025

== ENCOUNTER → 2020-11-19 11:15 | Outpatient (CLI) | payer OTHER, MEDICAID, SELFPAY ==
[2020-11-20 12:42] LABS: Strep Grp B PCR NEG for Grp B Strep
== END ==
PROVIDERS: Family Provider Physician Assistant; PCP Registered Nurse; Visit Provider Obstetrics & Gynecology
DX: Z34.03 Encounter for supervision of normal first pregnancy, third trimester (principal); Z3A.35 35 weeks gestation of pregnancy
CPT/HCPCS: 87653

== ENCOUNTER → 2020-12-03 15:01 | Outpatient (CLI) | payer OTHER, MEDICAID, SELFPAY ==
[2020-12-03 16:06] LABS: Add Manual Diff / Slide Review NO; Basophils Absolute Auto 0 /uL (0-100); Basophils Percent Auto 0.2 % (0-2); Eosinophils Absolute Auto 100 /uL (0-450); Eosinophils Percent Auto 0.7 % (2-4); Hematocrit 36.6 % (36-46); Hemoglobin 12.5 g/dL (12.0-16.0); Lymphocytes Absolute Auto 1700 /uL (1100-4500); Lymphocytes Percent Auto 15.3 % (25-40); Mean Corpuscular HGB Conc 34.3 % (30-36); Mean Corpuscular Hemoglobin 29.1 PG (26-34); Mean Corpuscular Volume 84.7 fL (80-100); Monocytes Absolute Auto 700 /uL (0-900); Monocytes Percent Auto 6.7 % (3-14); Neutrophils Absolute Auto 8400 /uL (1500-7000); Neutrophils Percent Auto 77.1 % (50-75); Platelet Count 201 X10^3/uL (150-400); Red Blood Cell Count 4.32 X10^6/uL (4.0-5.2); Red Cell Distribution Width 13.8 % (11.6-14.8); White Blood Cell Count 10.8 X10^3/uL (4.5-11.0)
[2020-12-03 16:29] LABS: Aspartate Aminotransferase 18 IU/L (14-36); BUN Creatinine Ratio 8.5 (6-22); Blood Urea Nitrogen 6 mg/dL (7-17); Estimated Glomerular Filt Rate > 60.0 mL/min (>60); Uric Acid 3.6 mg/dL (2.5-6.2)
[2020-12-03 16:46] LABS: Creatinine Urine Random 125.1 mg/dL; Protein (Total) Urine Random 14 mg/dL (0-12); Protein Creatinine Ratio Urine 0.11 GRAM/24H
== END ==
PROVIDERS: Family Provider Physician Assistant; PCP Registered Nurse; Referring Provider Obstetrics & Gynecology; Visit Provider Obstetrics & Gynecology
DX: Z34.90 Encounter for supervision of normal pregnancy, unspecified, unspecified trimester (principal)
CPT/HCPCS: 36415; 82570; 84156; 84450; 84550; 85025

== ENCOUNTER 2020-12-03 15:44 | Outpatient (CLI) | payer OTHER, MEDICAID, SELFPAY | END 2020-12-03 17:00 | disposition home or self-care (01) | LOC: OB 12-04 09:39 | PROVIDERS: Family Provider Physician Assistant; PCP Registered Nurse; Referring Provider Obstetrics & Gynecology; Visit Provider Obstetrics & Gynecology | DX: O26.893 Other specified pregnancy related conditions, third trimester (principal); R03.0 Elevated blood-pressure reading, without diagnosis of hypertension; O99.323 Drug use complicating pregnancy, third trimester; F12.90 Cannabis use, unspecified, uncomplicated; Z3A.37 37 weeks gestation of pregnancy | CPT/HCPCS: 36415; 59025; 82570; 84156; 84450; 84550; 85025; G0378; G0379 ==

== ENCOUNTER → 2020-12-10 14:13 | Outpatient (CLI) | payer OTHER, MEDICAID, SELFPAY ==
[2020-12-10 15:00] LABS: Add Manual Diff / Slide Review NO; Basophils Absolute Auto 0 /uL (0-100); Basophils Percent Auto 0.4 % (0-2); Eosinophils Absolute Auto 100 /uL (0-450); Eosinophils Percent Auto 0.6 % (2-4); Hematocrit 37.2 % (36-46); Hemoglobin 12.3 g/dL (12.0-16.0); Lymphocytes Absolute Auto 2000 /uL (1100-4500); Mean Corpuscular Volume 84.7 fL (80-100); Monocytes Absolute Auto 700 /uL (0-900); Monocytes Percent Auto 6.6 % (3-14); Neutrophils Absolute Auto 8400 /uL (1500-7000); Neutrophils Percent Auto 74.4 % (50-75); Platelet Count 209 X10^3/uL (150-400); Red Blood Cell Count 4.39 X10^6/uL (4.0-5.2); Red Cell Distribution Width 14.2 % (11.6-14.8); White Blood Cell Count 11.2 X10^3/uL (4.5-11.0)
[2020-12-10 15:19] LABS: Alanine Aminotransferase 11 IU/L (<35); Albumin 3.3 g/dL (3.5-5.0); Albumin Globulin Ratio 1.1 (1.0-2.8); Alkaline Phosphatase 156 U/L (38-126); Aspartate Aminotransferase 18 IU/L (14-36); BUN Creatinine Ratio 14.1 (6-22); Bilirubin Total 0.3 mg/dL (0.2-1.3); Blood Urea Nitrogen 9 mg/dL (7-17); Calcium 9.4 mg/dL (8.4-10.2); Carbon Dioxide 19 mmol/L (22-32); Chloride 107 mmol/L (98-107); Estimated Glomerular Filt Rate > 60.0 mL/min (>60); Globulin 2.9 g/dL (1.7-4.1); Glucose 83 mg/dL (70-100); HEMOLYSIS < 15 (0-50); Lactate Dehydrogenase 393 U/L (313-618); Potassium 4.1 mmol/L (3.4-5.1); Sodium 132 mmol/L (137-145); Total Protein 6.2 g/dL (6.3-8.2); Uric Acid 3.8 mg/dL (2.5-6.2)
[2020-12-10 16:36] LABS: Creatinine Urine Random 159.1 mg/dL; Protein (Total) Urine Random 10 mg/dL (0-12); Protein Creatinine Ratio Urine 0.06 GRAM/24H
[2020-12-11 08:12] LABS: Candida species Positive (Negative); Gardnerella vaginalis Negative (Negative); Trichomoas vaginalis Negative (Negative)
== END ==
PROVIDERS: Family Provider Physician Assistant; PCP Registered Nurse; Referring Provider Obstetrics & Gynecology; Visit Provider Obstetrics & Gynecology
DX: O99.891 Other specified diseases and conditions complicating pregnancy (principal); N89.8 Other specified noninflammatory disorders of vagina; Z3A.38 38 weeks gestation of pregnancy
CPT/HCPCS: 36415; 80053; 82570; 83615; 84156; 84550; 85025; 87480; 87510; 87660

== ENCOUNTER 2020-12-10 14:52 | Observation (INO) | payer OTHER, MEDICAID, SELFPAY ==
[2020-12-10 15:48] VITALS: TEMP 36.9
[2020-12-10] MEDS: ACETAMINOPHEN 325 MG TABLET 650 MG PO (15:48)
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
== END 2020-12-10 17:05 | disposition home or self-care (01) ==
PROVIDERS: Admitting Provider Obstetrics & Gynecology; Family Provider Physician Assistant; PCP Registered Nurse; Referring Provider Obstetrics & Gynecology; Visit Provider Obstetrics & Gynecology
DX: O99.323 Drug use complicating pregnancy, third trimester (principal); F12.90 Cannabis use, unspecified, uncomplicated; Z3A.38 38 weeks gestation of pregnancy; O99.891 Other specified diseases and conditions complicating pregnancy; N89.8 Other specified noninflammatory disorders of vagina
CPT/HCPCS: 36415; 59025; 59050; 80053; 82570; 83615; 84156; 84550; 85025; 87480; 87510; 87660; G0378; G0379

== ENCOUNTER → 2020-12-18 08:11 | Outpatient (CLI) | payer OTHER, MEDICAID, SELFPAY ==
--- NOTE | 2020-12-18 08:12 | DI.US.S_ITS ---
PROCEDURE: US OB LIMITED INDICATIONS: IUGR OUTSIDE/PRIOR DATING DATA: Last menstrual period (LMP): 04/06/2020. LMP-based estimated date of delivery (GRACE): 01/11/2021. First dating scan (date and location): 05/02/2020 at . Estimated date of delivery (GRACE) from first dating scan: 12/18/2020. TECHNIQUE: Real-time scanning was performed of the fetus, with image documentation and biometric measurements. Endovaginal scanning: Not performed COMPARISON: [facility], OB >= 14 WEEKS FETUS, 11/27/2020, 10:48. [facility] OB >= 14 WEEKS FETUS, 11/05/2020, 10:42. [facility] OB >= 14 WEEKS FETUS, 09/21/2020, 15:52. [facility] OB <= 14 WEEKS FETUS, 06/11/2020, 15:12. [facility] OB <= 14 WEEKS FETUS, 05/02/2020, 13:00. [facility] OB LIMITED, 10/03/2020, 12:20. FINDINGS: General: A single living intrauterine gestation is present. Presentation: Vertex. Placenta: Placental position is anterior , without previa. Amniotic fluid index: 23.7 cm, normal range is 5-24 cm. heart rate: 128 beats per minute. Maternal cervical canal: Not visualized. biometrics: Biparietal diameter: 37 weeks 3 days Head circumference: 37 weeks 6 days Abdominal circumference: 39 weeks 2 days Femur length: 40 weeks 0 day Estimated gestational age from initial scan: 40 weeks 0 day. Composite gestational age from present scan: 38 weeks 5 days Estimated weight and percentile: 3655 g; 53% for gestational age. Measurement variability for biometric dating: +/- 7 days from 14 weeks to 15 weeks 6 days gestation, +/- 10 days from 16 weeks to 21 weeks 6 days gestation, +/- 2 weeks from 22 weeks to 27 weeks 6 days gestation, +/- 3 weeks for 28 weeks gestation or later. weight reference: 4500 g or EFW >90/95% is considered macrosomia or large for gestational age. EFW <10% is small for gestational age. EFW 5% or less is considered intra-uterine growth restriction. Other: Not applicable. IMPRESSION: 1. A single living intrauterine gestation with appropriate interval growth. weight at the 53rd percentile. 2. Amniotic fluid index at the upper limits of normal concerning for developing polyhydramnios. Dictated by: Jorge Lemus M.D. on 12/18/2020 at 9:59 Approved by: Jorge Lemus M.D. on 12/18/2020 at 10:06
== END ==
PROVIDERS: Family Provider Physician Assistant; PCP Registered Nurse; Referring Provider Obstetrics & Gynecology; Visit Provider Obstetrics & Gynecology
DX: O36.5930 Maternal care for other known or suspected poor fetal growth, third trimester, not applicable or unspecified (principal); Z3A.38 38 weeks gestation of pregnancy
CPT/HCPCS: 76815

== ENCOUNTER 2020-12-18 08:59 | Outpatient (CLI) | payer OTHER, MEDICAID, SELFPAY ==
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
== END 2020-12-18 10:10 | disposition home or self-care (01) ==
LOC: LABOR 10:20 → OB 12-19 11:34
PROVIDERS: Family Provider Physician Assistant; PCP Registered Nurse; Referring Provider Obstetrics & Gynecology; Visit Provider Obstetrics & Gynecology
DX: O36.5930 Maternal care for other known or suspected poor fetal growth, third trimester, not applicable or unspecified (principal); O48.0 Post-term pregnancy; Z3A.40 40 weeks gestation of pregnancy
CPT/HCPCS: 59025; 76815; G0378; G0379

== ENCOUNTER 2020-12-20 14:39 | Inpatient (IN) | payer OTHER, MEDICAID, SELFPAY ==
[2020-12-20 15:49] LABS: Add Manual Diff / Slide Review NO; Basophils Absolute Auto 100 /uL (0-100); Basophils Percent Auto 0.5 % (0-2); Eosinophils Absolute Auto 100 /uL (0-450); Eosinophils Percent Auto 0.5 % (2-4); Hematocrit 37.4 % (36-46); Hemoglobin 12.6 g/dL (12.0-16.0); Lymphocytes Absolute Auto 1600 /uL (1100-4500); Lymphocytes Percent Auto 14.1 % (25-40); Mean Corpuscular HGB Conc 33.6 % (30-36); Mean Corpuscular Hemoglobin 28.4 PG (26-34); Mean Corpuscular Volume 84.7 fL (80-100); Monocytes Absolute Auto 700 /uL (0-900); Monocytes Percent Auto 5.8 % (3-14); Neutrophils Absolute Auto 9300 /uL (1500-7000); Neutrophils Percent Auto 79.1 % (50-75); Platelet Count 201 X10^3/uL (150-400); Red Blood Cell Count 4.42 X10^6/uL (4.0-5.2); Red Cell Distribution Width 14.8 % (11.6-14.8); White Blood Cell Count 11.7 X10^3/uL (4.5-11.0)
[2020-12-20 16:28] LABS: COVID19 - ADMIT (NP swab/PCR) Negative (Negative)
[2020-12-20 17:06] VITALS: BP 131/91
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
[2020-12-20] MEDS: LACTATED RINGERS 1,000 ML 100 ML IV (17:51)
[2020-12-20] MEDS: OXYTOCIN PREMIX 30 UNIT/500 ML PLAST..BAG IV (17:52)
--- NOTE | 2020-12-20 21:59 | PM.OBPNLAB ---
Date/Time Date Patient Seen: 12/20/20 Time Patient Seen: 21:59 Pain Control Pain control: tolerating well Comments: Now breathing through contractions x 30 minutes. VS: BP 118/77mmHg, HR 75bpm, T 36.4C Temporal Pelvic Exam Dilation (cm): 3 Effacement (%): 90 station: -4 Amniotic membrane status: Leaking Contractions Contractions on admission: irregular Monitor mode: External Pitocin rate (mU/min): 12 Contraction frequency (min): 2 Contraction duration (min): 1 Contraction intensity: Moderate Status status: Category l Heart Rate Baseline: 135 Monitor Accelerations: Present Monitor Decelerations: Absent Monitor Variability: Moderate Assessment and Plan Assessment: active labor Plan: continuous present management
[2020-12-20] MEDS: CALCIUM CARBONATE 500 MG TAB 1000 MG PO (22:00)
[2020-12-20] MEDS: fentaNYL 100 MCG/2 ML INJ IV (22:55)
[2020-12-20] MEDS: ONDANSETRON 4 MG/2 ML INJ IV (23:51)
[2020-12-21] MEDS: fentaNYL 100 MCG/2 ML INJ IV (00:19)
[2020-12-21] MEDS: LACTATED RINGERS 1,000 ML 100 ML IV (02:32)
--- NOTE | 2020-12-21 04:04 | PM.OBPNLAB ---
Date/Time Date Patient Seen: 12/21/20 Time Patient Seen: 04:04 Pain Control Pain control: epidural Pelvic Exam Dilation (cm): 7 Effacement (%): 90 station: -1 Amniotic membrane status: Leaking Contractions Contractions on admission: irregular Monitor mode: External Pitocin rate (mU/min): 12 Contraction frequency (min): 2 Contraction duration (min): 1 Contraction phase: Resting Contraction intensity: Strong/Firm Status status: Category ll Heart Rate Baseline: 130 Monitor Accelerations: Present Monitor Decelerations: Early and Variable Monitor Variability: Moderate Assessment and Plan Assessment: active labor Plan: continuous present management
--- NOTE | 2020-12-21 06:48 | PM.OBPRVD ---
Events: Labor Augmentation Labor & Delivery Delivery date: 12/21/20 Intrapartal Events: None Induction method: per pitocin protocol Delivery augmentation: pitocin Delivery monitor: external FHT and external uterine Route of delivery: Episiotomy description: None L&D Laceration Description: Vaginal - 1st Degree and Labial (1st degree left labial extended to periclitoral) Delivery repair: chromic (3.0) Estimated blood loss (mL): 400 Anesthesia Type: Epidural Narrative: Patient was checked and found to be C/C/+2. Strong maternal pushing efforts led to NSVB of a viable baby girl in INES position w/ no nuchal cord and easy delivery of the shoulders. was placed on maternal abdomen for drying, stimulation and skin to skin. Remaining 30 units of pitocin in 500mL LR was increased to 300mL/hr for AMTSL. After cessation of pulsation, th cord was double clamped and cut and hospital cord blood sample was collected. [place] Apgars 8/9. Gentle cord traction and ring forceps to tease out trailing membranes led to spontaneous, Hanson delivery of an apparently intact placenta, membranes and 3VC. Fundus immediately firm and bleeding small. A short 1st degree right vaginal laceration was repaired w/ single 3.0 chromic stitch and 1st degree left labial laceration extending to left periclitoral was repaired w/ 3.0 chromic, all under adequate epidural anesthesia. QBL 400mL. Both mother and baby stable and skin to skin as I left the room. [place] Baby 1: Infant gender: Female Presentation: vertex Position: Right Occiput Anterior Placenta delivery description: Spontaneous Cord Vessel Description: 3 Vessels score (1 min): 8 score (5 min): 9 Narrative: Appears AGA Plan for aftercare: Routine care
[2020-12-21] MEDS: IBUPROFEN 600 MG TABLET PO (18:49)
[2020-12-21] MEDS: ACETAMINOPHEN 325 MG TABLET 650 MG PO (20:20)
[2020-12-22] MEDS: IBUPROFEN 600 MG TABLET PO ×2 (00:55→06:51)
[2020-12-22] MEDS: ACETAMINOPHEN 325 MG TABLET 650 MG PO (05:29)
--- NOTE | 2020-12-22 08:39 | P.DS_ITS ---
Discharge Providers Provider Date of admission: 12/20/20 14:39 Discharge Date: 12/22/20 Primary care physician: MILE Neves Consults: 12/22/20 06:46 Consult to Inflated Pad Buffer Routine Comment: Discharge provider: Anat Garzon MD Summary Hospital Course Date Patient Seen: 12/22/20 Time Patient Seen: 08:40 Diagnoses: Spontaneous vaginal delivery Hospital Course: Patient arrived Labor and delivery with spontaneous rupture membranes. She had Pitocin augmentation labor. She received an epidural catheter for pain control. She had some 1st degree perineal tears that were repaired. She is breast- feeding without difficulty. She denies headaches, scotomata, epigastric pain. She is urinating and ambulating well. No nausea. Peripartum Data Delivery Method: Natural Vaginal Laceration Description: Labial Procedures: Pitocin augmentation of labor, epidural catheter, spontaneous vaginal delivery, repair of labial laceration complications: none [place] 1: Gender: Female Disposition of : home Discharge Diagnosis (1) Normal vaginal delivery: Status: Acute Status at Discharge Cognitive/behavioral status at discharge: oriented Functional status at discharge: independent ambulation Overall status at discharge: patient is progressing back to baseline Time Spent with Patient Time attestation: Total time spent providing and/or coordinating discharge services: Time spent: Less than 30 minutes Objective Labs Result Diagrams: 12/20/20 15:40 Exam Vital Signs (past 8 hours): Blood pressure is 108/76, pulse of 84, temperature 98.3? Narrative Exam Narrative: Abdomen is soft, nontender. Uterus is firm, at U, nontender. Mild lochia. Repair intact. Extremities without edema and nontender. Patient's blood type is A positive. She is rubella immune. She received the Tdap in the 3rd trimester. Discharge Plan Discharge Plan Patient Disposition: Home Discharge orders & Medications Prescriptions: New ibuprofen 600 mg Tablet 600 mg PO Q6HR PRN (Reason: Pain, Mild (1-3)) Qty: 20 RF: 0 Continued prenat.vits,kelsey,jed-nydf-bksrp Tablet 1 tab PO DAILY RF: 0 Follow up/Referrals: Erika Valderrama MD [Physician] - 6 Weeks Surendra Parish ARNP [Primary Care Provider] - Diet/Activity/Treatments Diet: Regular Activity: Nothing in vagina for 6 weeks Skin/Wound/Dressing Care Report to your healthcare provider any signs of infection, such as:: chills, fever and increased pain Discharge Data Primary Care Provider: Surendra Parish
[2020-12-22] MEDS: LANOLIN OINT 7 GM 1 APPLIC TOP (09:23)
[2020-12-22 09:32] VITALS: BP 124/77; PULSE 84; RESP 17; TEMP 36.4
[2020-12-22 11:17] VITALS: BP 111/69; PULSE 82; RESP 17; TEMP 37.3
== END 2020-12-22 12:00 | disposition home or self-care (01) | DRG 560 ==
PROVIDERS: Admitting Provider Obstetrics & Gynecology; Family Provider Physician Assistant; PCP Registered Nurse; Referring Provider Obstetrics & Gynecology; Visit Provider Obstetrics & Gynecology
DX: O48.0 Post-term pregnancy (principal); O99.324 Drug use complicating childbirth; F12.90 Cannabis use, unspecified, uncomplicated; O42.02 Full-term premature rupture of membranes, onset of labor within 24 hours of rupture; O99.891 Other specified diseases and conditions complicating pregnancy; R03.0 Elevated blood-pressure reading, without diagnosis of hypertension; O70.0 First degree perineal laceration during delivery; Z37.0 Single live birth; Z3A.40 40 weeks gestation of pregnancy; Z20.822 Contact with and (suspected) exposure to COVID-19
CPT/HCPCS: 01967; 36415; 59050; 84112; 85025; 86850; 86900; 86901; 87635; C9803; G0379; J2405; J2590; J3010

== ENCOUNTER → 2022-11-25 12:04 | Outpatient (CLI) | payer OTHER, MEDICAID, SELFPAY | PROVIDERS: Family Provider Physician Assistant; PCP Nurse Practitioner Family; Visit Provider Nurse Practitioner Family | DX: J02.9 Acute pharyngitis, unspecified (principal) | CPT/HCPCS: 87070; 87880 ==

== ENCOUNTER → 2023-04-17 11:06 | Outpatient (CLI) | payer OTHER, MEDICAID, SELFPAY ==
--- NOTE | 2023-04-17 11:08 | DI.US.S_ITS ---
PROCEDURE: US TRANSVAGINAL INDICATIONS: CHRONIC PELVIC PAIN TECHNIQUE: Real-time scanning was performed of the pelvic organs, with image documentation. Additional endovaginal scanning was necessary due to incomplete visualization of the adnexal and endometrial structures by transabdominal scanning. COMPARISON: None. FINDINGS: Uterus: Uterus is anteverted and normal in size at 7.4 x 3.6 x 4.2 cm. The myometrium is homogeneous. The endometrium measures 10 mm combined thickness. Ovaries: The right ovary measures 3.9 x 2.4 x 1.8 cm, with a calculated ovarian volume of 8.7 cc. The left ovary measures 3.3 x 1.7 x 2.2 cm, with a calculated ovarian volume of 6.6 cc. The ovaries have a normal sonographic appearance. Less than 12 follicles can be seen in each ovary. No adnexal masses are seen. Other: No pathologic free abdominal or pelvic fluid. IMPRESSION: Unremarkable exam. We strive to produce accurate, complete, and clear reports of imaging services. To assist us in improving patient care, this report was composed using standard report templates and voice recognition software. Therefore, it may contain abnormal punctuation, insertions and/or omissions. Occasional wrong-word or sound-alike substitutions may occur. Though we review the report and make efforts to correct it, we do recommend that the report be read carefully in proper context to recognize any text inaccuracies. Dictated by: Lori Esposito M.D. on 04/17/2023 at 14:44 Approved by: Lori Esposito M.D. on 04/17/2023 at 14:47
== END ==
PROVIDERS: Family Provider Physician Assistant; PCP Family Medicine; Referring Provider Family Medicine; Visit Provider Family Medicine
DX: R10.2 Pelvic and perineal pain (principal); G89.29 Other chronic pain
CPT/HCPCS: 76830; 76856; 93976

== ENCOUNTER → 2023-04-23 09:33 | Outpatient (CLI) | payer OTHER, MEDICAID, SELFPAY ==
[2023-04-23 10:22] LABS: Hematocrit 43.1 % (36-46); Hemoglobin 14.5 g/dL (12.0-16.0); Mean Corpuscular Hemoglobin 27.9 PG (26-34); Red Blood Cell Count 5.19 X10^6/uL (4.0-5.2); White Blood Cell Count 8.8 X10^3/uL (4.5-11.0)
[2023-04-23 10:23] LABS: Add Manual Diff / Slide Review NO; Basophils Absolute Auto 100 /uL (0-100); Basophils Percent Auto 0.7 % (0-2); Eosinophils Absolute Auto 200 /uL (0-450); Eosinophils Percent Auto 2.4 % (2-4); Lymphocytes Absolute Auto 1900 /uL (1100-4500); Lymphocytes Percent Auto 21.2 % (25-40); Mean Corpuscular HGB Conc 33.6 % (30-36); Monocytes Absolute Auto 500 /uL (0-900); Neutrophils Absolute Auto 6200 /uL (1500-7000); Neutrophils Percent Auto 69.7 % (50-75); Platelet Count 225 X10^3/uL (150-400); Red Cell Distribution Width 13.8 % (11.6-14.8)
[2023-04-23 10:24] LABS: Hemoglobin A1C% w Est Avg Glu 5.6 % (4.0-6.0)
[2023-04-23 10:34] LABS: Alanine Aminotransferase 28 IU/L (<35); Albumin 4.5 g/dL (3.5-5.0); Albumin Globulin Ratio 1.6 (1.0-2.8); Alkaline Phosphatase 62 U/L (38-126); Aspartate Aminotransferase 24 IU/L (14-36); Bilirubin Total 0.1 mg/dL (0.2-1.3); Blood Urea Nitrogen 18 mg/dL (7-17); Calcium 9.7 mg/dL (8.4-10.2); Carbon Dioxide 26 mmol/L (22-32); Chloride 105 mmol/L (98-107); Cholesterol 203 mg/dL (140-199); Estimated Glomerular Filt Rate > 60 mL/min (>60); Globulin 2.9 g/dL (1.7-4.1); Glucose 103 mg/dL (70-100); HDL Cholesterol 55 mg/dL (40-60); HEMOLYSIS < 15 (0-50); LDL Cholesterol Calculated 133 mg/dL (<100); Potassium 4.4 mmol/L (3.4-5.1); Sodium 139 mmol/L (137-145); Total Protein 7.4 g/dL (6.3-8.2); Triglycerides 75 mg/dL (35-150)
[2023-04-23 10:41] LABS: Vitamin D 25 Hydroxy (D3) 38.9 ng/mL (30.0-100.0)
[2023-04-23 12:20] LABS: Urine N gonorrhoeae NOT DETECTED
[2023-04-23 12:23] LABS: Urine Chlamydia NOT DETECTED
== END ==
PROVIDERS: Family Provider Physician Assistant; PCP Family Medicine; Referring Provider Family Medicine; Visit Provider Family Medicine
DX: R53.83 Other fatigue (principal); E66.9 Obesity, unspecified; R10.2 Pelvic and perineal pain; G89.29 Other chronic pain
CPT/HCPCS: 36415; 80053; 80061; 82306; 83036; 84443; 85025; 87491; 87591

== ENCOUNTER 2023-10-19 15:58 | Emergency (ER) | payer OTHER, SELFPAY ==
[2023-10-19 16:27] VITALS: BP 123/58; PULSE 84; RESP 16; TEMP 36.8; O2SAT 96; BMI 36.6
[2023-10-19 18:19] VITALS: BP 122/74; PULSE 70; RESP 18; O2SAT 95
[2023-10-19] MEDS: KETOROLAC 30 MG/ML VIAL IM (18:23)
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
== END 2023-10-19 18:31 | disposition home or self-care (01) ==
PROVIDERS: Emergency Provider Student in an Organized Health Care Education/Training Program; Family Provider Physician Assistant; PCP Family Medicine
DX: R51.9 Headache, unspecified (principal); M79.604 Pain in right leg; V43.52XA Car driver injured in collision with other type car in traffic accident, initial encounter; Y93.89 Activity, other specified; Y92.410 Unspecified street and highway as the place of occurrence of the external cause
CPT/HCPCS: 96372; 99283; J1885

== ENCOUNTER → 2023-11-16 14:10 | Outpatient (CLI) | payer OTHER, SELFPAY ==
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
== END ==
LOC: RAD 14:11
PROVIDERS: Family Provider Physician Assistant; PCP Family Medicine; Referring Provider Family Medicine; Visit Provider Family Medicine
DX: M25.571 Pain in right ankle and joints of right foot (principal); M25.561 Pain in right knee
CPT/HCPCS: 73562; 73610

== ENCOUNTER → 2023-12-04 11:34 | Outpatient (CLI) | payer OTHER, SELFPAY ==
--- NOTE | 2023-12-04 11:35 | DI.MRI.S_ITS ---
PROCEDURE: MR ANKLE RT WO CON INDICATIONS: Rt Ankle Pain TECHNIQUE: Noncontrast sagittal T1 spin echo and T2 fast spin echo with fat saturation, axial proton density fast spin echo and T2 fast spin echo with fat saturation, coronal T1 spin echo and T2 fast spin echo with fat saturation through the ankle/hindfoot. COMPARISON: [facility], CR, XR ANKLE RT MIN 3V, 11/16/2023, 14:36. FINDINGS: Image quality: Excellent. Bones and joints: No bone marrow contusions or fractures. No hindfoot coalitions. No osteochondral injuries of the talar dome. No pathologic joint effusions. Medial structures: The posterior tibialis tendon is mildly thickened near its distal insertion. The flexor digitorum longus, and flexor hallucis longus tendons are intact. The posterior tibial neurovascular bundle appears normal within the tarsal tunnel, without extrinsic mass effect. The deep layer (anterior and posterior tibiotalar ligaments) and superficial layer (tibionavicular, tibiospring, and tibiocalcaneal ligaments) of the deltoid ligament appear normal. The spring ligament components (superomedial calcaneonavicular, medioplantar oblique calcaneonavicular, and inferoplantar longitudinal ligaments) are intact. Lateral structures: The anterior talofibular, calcaneofibular, and posterior talofibular ligaments appear intact. More superiorly, the anterior and posterior tibiofibular ligaments appear intact, as is the intermalleolar ligament. The tibiofibular syndesmosis is normal in width at 2 mm or less. The peroneus longus and brevis tendons demonstrate normal location and morphology. Adjacent bony peroneal tubercle and retrotrochlear prominence are normal in size. The sinus tarsi demonstrates normal fatty signal, without edema, fibrosis, or cyst formation. Visualized sinus tarsi components (cervical ligament, interosseous talocalcaneal ligament, roots of the inferior extensor retinaculum) appear normal. Anterior structures: The tibialis anterior, extensor hallucis longus, and extensor digitorum longus tendons appear intact. The dorsal talonavicular ligament appears intact. Posterior and plantar structures: Achilles tendon is intact. Medial band of plantar fascia is mildly thickened at the level of plantar insertion with mild adjacent soft tissue edema. No abductor digiti quinti muscle atrophy to suggest Lackey neuropathy. IMPRESSION: 1. No marrow edema. No fracture or dislocation. No evidence of osteochondral injuries of talar dome. 2. Distal posterior tibialis tendinosis as above. 3. Mildly thickened medial band of plantar fascia at its plantar calcaneal insertion concerning for very low-grade plantar fasciitis. 4. Rest of the ankle tendons and ligaments are intact. Dictated by: Lemuel Emerson M.D. on 12/04/2023 at 14:32 Approved by: Lemuel Emerson M.D. on 12/04/2023 at 14:38
== END ==
LOC: MRI 11:35
PROVIDERS: Family Provider Physician Assistant; PCP Family Medicine; Referring Provider Family Medicine; Visit Provider Family Medicine
DX: M67.971 Unspecified disorder of synovium and tendon, right ankle and foot (principal); M25.571 Pain in right ankle and joints of right foot
CPT/HCPCS: 73721

== ENCOUNTER 2024-01-20 10:44 | Emergency (ER) | payer SELFPAY ==
[2024-01-20 11:01] VITALS: BP 132/81; PULSE 80; RESP 16; TEMP 36.9; O2SAT 99; BMI 37.3
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
[2024-01-20 12:52] LABS: Urine Volume 10mL (spun)
[2024-01-20 12:58] LABS: Bacteria Urine Many (>30); Culture Indicated Urine Specimen Cultured; RBC Urine 30-100/HPF (0-5/HPF); Squamous Epithelial Cell Urine 1-5 /HPF (0-5/HPF); WBC Urine 30-100/HPF (0-5/HPF)
[2024-01-20] MEDS: KETOROLAC 30 MG/ML VIAL 15 MG IV (13:06)
[2024-01-20] MEDS: ONDANSETRON 4 MG/2 ML INJ IV (13:06)
[2024-01-20] MEDS: SODIUM CHLORIDE 0.9% 1,000 ML 1000 ML IV (13:07)
[2024-01-20 13:14] LABS: Add Manual Diff / Slide Review NO; Basophils Absolute Auto 100 /uL (0-100); Basophils Percent Auto 0.5 % (0-2); Eosinophils Absolute Auto 100 /uL (0-450); Eosinophils Percent Auto 0.6 % (2-4); Hematocrit 40.4 % (36-46); Hemoglobin 13.6 g/dL (12.0-16.0); Lymphocytes Absolute Auto 2000 /uL (1100-4500); Lymphocytes Percent Auto 16.9 % (25-40); Mean Corpuscular HGB Conc 33.7 % (30-36); Mean Corpuscular Hemoglobin 28.1 PG (26-34); Mean Corpuscular Volume 83.5 fL (80-100); Monocytes Absolute Auto 600 /uL (0-900); Monocytes Percent Auto 5.2 % (3-14); Neutrophils Absolute Auto 9200 /uL (1500-7000); Neutrophils Percent Auto 76.8 % (50-75); Platelet Count 245 X10^3/uL (150-400); Red Blood Cell Count 4.83 X10^6/uL (4.0-5.2); Red Cell Distribution Width 13.6 % (11.6-14.8)
[2024-01-20 13:28] LABS: Alanine Aminotransferase 28 IU/L (<35); Albumin 4.5 g/dL (3.5-5.0); Albumin Globulin Ratio 1.5 (1.0-2.8); Alkaline Phosphatase 68 U/L (38-126); Aspartate Aminotransferase 25 IU/L (14-36); BUN Creatinine Ratio 11.2 (6-22); Bilirubin Total 0.5 mg/dL (0.2-1.3); Blood Urea Nitrogen 11 mg/dL (7-17); Calcium 8.9 mg/dL (8.4-10.2); Carbon Dioxide 22 mmol/L (22-32); Chloride 107 mmol/L (98-107); Estimated Glomerular Filt Rate > 60 mL/min (>60); Glucose 103 mg/dL (70-100); HEMOLYSIS < 15 (0-50); Sodium 139 mmol/L (137-145); Total Protein 7.5 g/dL (6.3-8.2)
== END 2024-01-20 14:34 | disposition home or self-care (01) ==
PROVIDERS: Emergency Provider Emergency Medicine; Family Provider Physician Assistant; PCP Family Medicine
DX: N12 Tubulo-interstitial nephritis, not specified as acute or chronic (principal); R79.89 Other specified abnormal findings of blood chemistry
CPT/HCPCS: 36415; 74176; 80053; 81003; 81015; 81025; 83605; 85025; 87077; 87086; 87186; 96361; 96374; 96375; 99284; J1885; J2405

== ENCOUNTER → 2024-05-16 16:12 | Outpatient (CLI) | payer OTHER, SELFPAY ==
--- NOTE | 2024-05-16 16:14 | DI.MRI.S_ITS ---
PROCEDURE: MR KNEE RT WO CON INDICATIONS: Chronic Knee Pain TECHNIQUE: Noncontrast sagittal PD fast spin echo and T2 fast spin echo with fat saturation, sagittal 3-D FLASH with fat saturation; coronal T1 spin echo and PD fast spin echo with fat saturation, and axial PD fast spin echo with fat saturation through the knee. COMPARISON: [facility], CR, XR KNEE RT 3V, 11/16/2023, 14:36. FINDINGS: Image quality: Excellent. Anterior cruciate ligament: Intact. Posterior cruciate ligament: Intact. Medial collateral ligament: Mild thickening of the proximal medial collateral ligament without surrounding edema is consistent with remote prior low-grade sprain. Lateral collateral ligament: Intact. Medial meniscus: Intact. Lateral meniscus: Intact. Medial and lateral tendons: The semimembranosus tendon insertions appear intact. Visualized portions of the pes anserinus tendons appear normal. The popliteus tendon is intact. Iliotibial band appears normal. Anterior structures: The quadriceps and patellar tendons appear intact. No patellar subluxation. No femoral trochlear dysplasia or ventral trochlear prominence. No edema in the infrapatellar fat pad. Bones and cartilage: No bone marrow contusions or fractures. Medial femorotibial cartilage: No focal cartilage defect. Lateral femorotibial cartilage: No focal cartilage defect. Patellofemoral cartilage: No focal cartilage defect. Soft tissues: There is physiologic knee joint fluid. Trace medial popliteal cyst. The musculature surrounding the knee is normal in bulk. IMPRESSION: 1. No acute trabecular bone injury. Cruciate ligaments are intact. No meniscal tear or focal cartilage defect is seen. 2. Mild thickening of the proximal medial collateral ligament may indicate a remote prior low-grade sprain. Approved by: Que Swanson M.D. on 05/17/2024 at 11:22
== END ==
PROVIDERS: Family Provider Physician Assistant; PCP Family Medicine; Referring Provider Family Medicine; Visit Provider Family Medicine
DX: M25.561 Pain in right knee (principal); G89.29 Other chronic pain
CPT/HCPCS: 73721